=== PATIENT | female | born 1975 | race African-American/Black ===

== ENCOUNTER 2019-10-24 06:10 | Emergency (ER) | payer OTHER, MEDICAID ==
[~2019-10-24] VITALS: Ht 167.6 cm; Wt 109.0 kg
[~2019-10-24 06:10] MED LIST: LEVO75TA PO; LORA1TAB PO; OLAN5TAB26 PO; [UNRECOGNIZED DRUG - OTHER] PO; iron
[2019-10-24 07:23] VITALS: BP 122/76
== END 2019-10-24 07:23 | disposition home or self-care (01) ==
LOC: ER 06:10
DX: J06.9 Acute upper respiratory infection, unspecified (principal); F32.9 Major depressive disorder, single episode, unspecified; I10 Essential (primary) hypertension; F20.9 Schizophrenia, unspecified; Z88.2 Allergy status to sulfonamides; Z88.3 Allergy status to other anti-infective agents; Z98.890 Other specified postprocedural states
CPT/HCPCS: 99283